=== PATIENT | male | born 1990 | race Caucasian/White ===

== ENCOUNTER 2018-11-06 22:58 | Emergency (ER) | payer OTHER ==
[~2018-11-06] VITALS: Ht 162.6 cm; Wt 56.8 kg
[2018-11-07 00:47] VITALS: BP 93/61
== END 2018-11-07 01:24 | disposition home or self-care (01) ==
LOC: ER 22:58
DX: M00.9 Pyogenic arthritis, unspecified (principal); F15.10 Other stimulant abuse, uncomplicated; F17.210 Nicotine dependence, cigarettes, uncomplicated; Z91.19 Patient's noncompliance with other medical treatment and regimen

== ENCOUNTER 2020-10-09 01:55 | Emergency (ER) | payer OTHER ==
[~2020-10-09] VITALS: Ht 162.6 cm; Wt 59.0 kg
[2020-10-09 03:59] VITALS: BP 114/78
== END 2020-10-09 04:02 | disposition home or self-care (01) ==
LOC: ER 01:55
DX: S30.0XXA Contusion of lower back and pelvis, initial encounter (principal); F17.210 Nicotine dependence, cigarettes, uncomplicated; Z98.890 Other specified postprocedural states; V03.19XA Pedestrian with other conveyance injured in collision with car, pick-up truck or van in traffic accident, initial encounter; Y93.89 Activity, other specified; Y92.481 Parking lot as the place of occurrence of the external cause; Y99.8 Other external cause status